=== PATIENT | male | born 1980 | race American Indian/Alaskan Native ===

== ENCOUNTER 2017-03-04 18:20 | Emergency (ER) | payer SELFPAY ==
[2017-03-04 19:36] LABS: Basophils % (Auto) 0.4 % (0.0-1.8); Eosinophils % (Auto) 2.3 % (0.0-4.3); Hematocrit 43.6 % (35.5-45.6); Hemoglobin 14.4 gm/dl (11.8-15.2); Mean Corpuscular HGB Conc 33 % (32-34); Mean Corpuscular Hemoglobin 30 pg (28-32); Mean Corpuscular Volume 92 fl (84-94); Platelet Count 276 K/mm3 (140-440); Red Blood Count 4.76 M/mm3 (3.65-5.03); Red Cell Distribution Width 14.9 % (13.2-15.2); White Blood Count 5.5 K/mm3 (4.5-11.0)
[2017-03-04 19:48] LABS: Alanine Aminotransferase 78 units/L (7-56); Albumin 4.7 g/dL (3.9-5); Albumin/Globulin Ratio 1.3 %; Alkaline Phosphatase 126 units/L (35-129); Anion Gap 17 mmol/L; BUN/Creatinine Ratio 7.14; Blood Urea Nitrogen 5 mg/dL (9-20); Calcium 10.2 mg/dL (8.4-10.2); Carbon Dioxide 31 mmol/L (22-30); Chloride 98.6 mmol/L (98-107); Glucose 85 mg/dL (75-100); Lipase 78 units/L (13-60); Potassium 4.4 mmol/L (3.6-5.0); Sodium 142 mmol/L (137-145); Total Protein 8.3 g/dL (6.3-8.2)
[2017-03-04 20:33] LABS: Bilirubin,Urine NEG (Negative); Blood,Urine NEG (Negative); Ketones,Urine 20 mg/dL (Negative); Leukocyte Esterase,Urine MOD (Negative); Mucus,Urine 1+ /HPF; Nitrite,Urine NEG (Negative); Protein,Urine <15 mg/dL mg/dL (Negative)
[2017-03-04 22:48] LABS: Urine Drugs of Abuse Note Disclamer
--- NOTE | 2017-03-05 00:22 | Ultrasound Report ---
FINAL REPORT PROCEDURE: US ABDOMEN LIMITED TECHNIQUE: Real-time sonography was performed of the right upper quadrant with image documentation. CPT 69513 HISTORY: RUQ abd pain COMPARISON: No prior studies are available for comparison. FINDINGS: The gallbladder is normal appearance. No evidence of gallstones or gallbladder wall thickening. Common bile duct is normal caliber measuring 4.5 millimeters. There are 2 oval echogenic densities visualized in the liver, 1 located in the right lobe of the liver adjacent to the gallbladder fossa measuring 3.2 x 1.9 x 2.8 centimeter. A 2nd lesion is located anteriorly in the left lobe of the liver measuring 3.0 x 1.9 x 1.4 centimeters. These are nonspecific. The increased echogenicity however may indicate the presence of a hepatic hemangioma. Other masses are not entirely excluded. The liver is otherwise unremarkable. Right kidney showed no abnormalities per. IMPRESSION: Gallbladder is unremarkable. Echogenic nodules are seen in the liver, 1 in the right lobe adjacent to the gallbladder fossa in the other in the left lobe anteriorly possibly representing hemangiomas although not confirmed by this exam. Other masses of the liver are not excluded. Consider follow-up dynamic contrast-enhanced CT scan of the liver with sequential delayed imaging to evaluate enhancement pattern of these masses.
[2017-03-05] MEDS ORDERED: NACL ONE (00:34)
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
[2017-03-05] MEDS ORDERED: BABY ASPIRIN PO ONE (02:10)
--- NOTE | 2017-03-05 02:15 | Cat Scan Report ---
FINAL REPORT PROCEDURE: CT ANGIO CHEST TECHNIQUE: Computerized tomographic angiography of the chest was performed after the IV injection of iodinated nonionic contrast including image processing. The image data was postprocessed using 2-dimensional multiplanar reformatted (MPR) and 3-dimensional (MIP and/or volume rendered) techniques. HISTORY: CP, elevated dimer COMPARISON: No prior studies are available for comparison. FINDINGS: Heart and pericardium: Normal. Thoracic aorta: There is no thoracic aortic aneurysm or dissection.. Pulmonary vasculature: There is no pulmonary embolism.. Lymph nodes: No enlarged thoracic lymph nodes. Lungs: The lungs are well expanded. There are no infiltrates, effusions or pneumothoraces.. Pleural space: No effusion, thickening, or pneumothorax. Musculoskeletal structures: No significant abnormality. Upper abdominal structures: No significant abnormality. IMPRESSION: Heart size is normal. There is no thoracic aortic aneurysm or dissection.. There is no pulmonary embolism.. The lungs are well expanded. There are no infiltrates, effusions or pneumothoraces..
--- NOTE | 2017-03-05 02:31 | Emergency Department Report ---
Blank Doc - Documentation Documentation: CTA of the chest reveals no evidence of pulmonary embolism or other acute abnormality. Patient will be discharged home this time to follow up with cardiology and gastroenterology.
[2017-03-05 02:56] VITALS: BP 108/62
--- NOTE | 2017-03-05 07:13 | XRay Report ---
Chest 2 views: History: Chest pain. Findings: Normal cardiomediastinal silhouette. Trachea is midline. No consolidation, pneumothorax or pleural effusion. Impression: No acute cardiopulmonary findings.
== END 2017-03-05 02:45 | disposition home or self-care (01) ==
LOC: ED 18:20
DX: D18.09 Hemangioma of other sites (principal); R07.9 Chest pain, unspecified; F17.200 Nicotine dependence, unspecified, uncomplicated
CPT/HCPCS: 36415; 71020; 71275; 76705; 80053; 80307; 81001; 83690; 84484; 85025; 85379; 93005; 93010; 99285; Q9967

== ENCOUNTER 2018-04-29 21:59 | Emergency (ER) | payer SELFPAY ==
--- NOTE | 2018-04-29 22:56 | Cat Scan Report ---
FINAL REPORT EXAM: CT HEAD/BRAIN WO CON HISTORY: loc TECHNIQUE: 2.5 millimeter axial images from the skullbase to the vertex. Comparison: CT face also performed today FINDINGS: There is no evidence of an acute intracranial process, intracranial hemorrhage or mass effect. Ventricular size is concordant with the degree of atrophy. The degree of atrophy is more than would be expected for the patient's age. The visualized portions of the orbits, paranasal and mastoid sinuses are notable for marked periorbital and frontal scalp soft tissue swelling/hematoma and fractures of the left medial orbital wall and right orbital floor. 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 There is partial opacification of the paranasal sinuses. IMPRESSION: 1. No evidence of an acute intracranial process, intracranial hemorrhage or mass effect. 2. Cerebral atrophy that is more than would be expected for this patient's age. 3. Bilateral facial fractures and left orbital emphysema. Please see report of CT of the face also performed today. 4. Bilateral frontal scalp and periorbital soft tissue swelling/hematomas.
--- NOTE | 2018-04-29 23:09 | Cat Scan Report ---
FINAL REPORT EXAM: CT FACIAL BONES WO CON HISTORY: facial injury TECHNIQUE: Axial helical imaging through the face with sagittal and coronal reformatted images obtained. Comparison: Head CT also performed today FINDINGS: There is a comminuted and displaced/depressed fracture of the anterior wall of the right maxillary sinus. There is a possible fracture of the medial wall of the right maxillary sinus. There is a displaced fracture through the floor of the right orbit with herniation of orbital fat through the fracture site. There is a displaced fracture through the medial wall of the left orbit with herniation of orbital fat through the fracture site. There is a possible fracture through the roof of the left ethmoid sinus/cribriform plate. 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 There is no evidence of retrobulbar hematoma. The globes appear to be intact. There appear to be bilateral nasal bone fractures. There is extensive edema/hematoma in the right face, mid face, periorbital regions and right frontal scalp. IMPRESSION: 1. Fractures of the anterior wall of the right maxillary sinus, floor of the right orbit, medial wall of the left orbit and bilateral nasal bones. 2. Possible fractures through the medial wall of the right maxillary sinus. 3. Possible left cribriform plate/roof of the left ethmoid sinus. This could result in a CSF leak. 4. Left orbital emphysema. 5. Extensive facial soft tissue swelling/hematoma.
[2018-04-29] MEDS ORDERED: NACL 0.9% 1000 ML 1,000 ML IV ONE (23:19)
[2018-04-29] MEDS ORDERED: ceFAZolin 2 GM in NACL 0.9% 100 ML IV ONE (23:20)
[2018-04-29] MEDS ORDERED: BOOSTRIX IM ONE (23:20)
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
[2018-04-29 23:50] LABS: Hematocrit 39.3 % (35.5-45.6); Hemoglobin 12.8 gm/dl (11.8-15.2); Mean Corpuscular HGB Conc 33 % (32-34); Mean Corpuscular Hemoglobin 30 pg (28-32); Mean Corpuscular Volume 93 fl (84-94); Platelet Count 144 K/mm3 (140-440); Red Blood Count 4.24 M/mm3 (3.65-5.03); Red Cell Distribution Width 14.5 % (13.2-15.2)
[2018-04-30] MEDS ORDERED: NACL 0.9% 500 ML IR ONE (00:25)
[2018-04-30 00:56] LABS: BUN/Creatinine Ratio 8; Blood Urea Nitrogen 5 mg/dL (9-20); Calcium 8.8 mg/dL (8.4-10.2)
[2018-04-30 00:57] LABS: Alanine Aminotransferase 116 units/L (7-56); Albumin 4.5 g/dL (3.9-5); Hemolysis Index 11
[2018-04-30 02:27] VITALS: BP 128/89
== END 2018-04-30 03:09 | disposition other institution (70) ==
LOC: ED 21:59
DX: S02.80XB Fracture of other specified skull and facial bones, unspecified side, initial encounter for open fracture (principal); S01.81XA Laceration without foreign body of other part of head, initial encounter; G44.311 Acute post-traumatic headache, intractable; F10.920 Alcohol use, unspecified with intoxication, uncomplicated; F17.200 Nicotine dependence, unspecified, uncomplicated; Y04.8XXA Assault by other bodily force, initial encounter; Y93.89 Activity, other specified; Y99.8 Other external cause status; Y92.488 Other paved roadways as the place of occurrence of the external cause
CPT/HCPCS: 36415; 70450; 70486; 80053; 85027; 90471; 90715; 96365; 99291; G0480; J0690; J7030; 80320

== ENCOUNTER 2018-09-09 09:34 | Emergency (ER) | payer SELFPAY ==
[2018-09-09 09:55] VITALS: BP 147/82
--- NOTE | 2018-09-09 10:51 | XRay Report ---
LEFT FINGERS, 3 VIEWS History: Pain Findings: A comminuted tuft fracture of the fifth digit is identified. There is also a complex associated soft tissue laceration. The remaining left fingers are intact. No joint pathology. Impression: Tuft fracture, fifth digit.
[2018-09-09] MEDS ORDERED: TORADOL IV ONE (10:53)
[2018-09-09] MEDS ORDERED: CLEOCIN 600 MG/50 mL 600 MG/50 ML BAG IV ONE (10:53)
[2018-09-09] MEDS ORDERED: MORPHINE IV ONE (10:53)
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
== END 2018-09-09 12:16 | disposition home or self-care (01) ==
LOC: ED 09:34
DX: S62.637A Displaced fracture of distal phalanx of left little finger, initial encounter for closed fracture (principal); L03.012 Cellulitis of left finger; F17.200 Nicotine dependence, unspecified, uncomplicated; W23.1XXA Caught, crushed, jammed, or pinched between stationary objects, initial encounter; Y93.89 Activity, other specified; Y92.89 Other specified places as the place of occurrence of the external cause; Y99.8 Other external cause status
CPT/HCPCS: 73140; 96365; 96375; 99283; J1885; J2270